=== PATIENT | male | born 1995 | race Two or more races ===

== ENCOUNTER 2023-09-04 20:01 | Emergency (ER) | payer OTHER, SELFPAY ==
--- NOTE | ~2023-09-04 | CT_ITS ---
EXAMINATION: CT brain wo con DATE: 09/04/2023 21:17 INDICATION: Head injury TECHNIQUE: Computed tomography (CT) of the head was performed without intravenous contrast. Sagittal and coronal reconstructions were performed. The mA was adjusted according to patient size. Iterative reconstruction technique was employed. The dose-length product was 681.00 mGy-cm. COMPARISON: None FINDINGS: No fracture. No acute intracranial hemorrhage, acute infarction or abnormal extra axial fluid collect ion. Ventricles are normal and symmetric. No mass/mass effect. Small mucous retention cyst in the pos terior most right ethmoid air cell. The orbits and mastoid air cells are normal. IMPRESSION: 1. Normal brain. No fracture or acute intracranial process. Reviewed, dictated and finalized at location A. O PRODUCER
[2023-09-04 20:07] VITALS: BP 126/77; PULSE 72; RESP 20; TEMP 37.1; O2SAT 99
--- NOTE | 2023-09-04 21:08 | ED.WOUNDLAC ---
HPI - Wound/Laceration General Chief Complaint: Wound/Laceration Stated Complaint: laceration Time Seen by Provider: 09/04/23 20:40 Source: patient and RN notes reviewed Mode of arrival: ambulatory Limitations: language barrier (patient speaks citizen [place]. use video set up mold technician) History of Present Illness HPI narrative: This is a 27 year old male who presents for evaluation of head injury. PAtient states he was standing up but he did not see there was a metal object. He hit his head on this metal object and he suffered laceration. He denies LOC but he reports severe headache. He denies dizziness, nausea, vomiting . He is unsure of if he has received a tetanus shot in the past. He reports headache 03/30. Related Data Allergies Allergy/AdvReac Type Severity Reaction Status Date / Time No Known Allergies Allergy Verified 09/04/23 20:14 Review of Systems Review of Systems: All systems reviewed & are unremarkable except as noted in HPI and below PMFSH Past Medical History Medical History (Updated 09/04/23 @ 22:19 by Marlene Schwartz MD) Patient denies medical problems Surgical History Surgical History (Updated 09/04/23 @ 21:10 by Marlene Schwartz MD) No pertinent past surgical history Social History Social History (Updated 09/04/23 @ 21:10 by Marlene Schwartz MD) Smoking status: Never smoker Exam Const: General: no acute distress and alert Nutritional Appearance: well nourished Orientation/consciousness: patient oriented x3 HENMT: Head: laceration (left frontal scalp laceration, circular flap, 3 cm) Ears: external ears normal Face and sinus: normal facial exam, sinuses nontender and sinus tenderness Mouth: Yes Normal oral and palatal mucosa present, Yes lip normal and Yes moist mucous membranes Throat: posterior oropharynx normal and uvula midline Eyes: EOM: EOMs intact bilaterally Neck: Neck: normal visual inspection Resp: Effort & Inspection: normal respiratory effort Skin: Other: scalp laceration Neuro: General: patient oriented x3, moves all extremities and CN's II-XI intact bilaterally Psych: Mental Status: mental status grossly normal Affect: normal affect Attitude: cooperative Course Reevaluation(s) Reevaluation #1: I Discussed wound care with patient. Date: 09/04/23 Time: 22:15 Vital Signs Vital signs: Vital Signs Temperature 98.8 F 09/04/23 20:07 Pulse Rate 72 09/04/23 20:07 Respiratory Rate 20 09/04/23 20:07 Blood Pressure 126/77 09/04/23 20:07 Pulse Oximetry 99 09/04/23 20:07 Oxygen Delivery Room Air 09/04/23 20:07 Temperature 98.8 F 09/04/23 20:07 Pulse Rate 72 09/04/23 20:07 Respiratory Rate 20 09/04/23 20:07 Blood Pressure 126/77 09/04/23 20:07 Pulse Oximetry 99 09/04/23 20:07 Oxygen Delivery Room Air 09/04/23 20:07 Procedures Laceration Laceration 1: Date: 09/04/23 Time: 22:15 Site: scalp Size (cm): 3 Description: flap Depth: simple, single layer Local Anesthetic: lidocaine 1% and with epi Amount of anesthesia used (mL): 3 Pre-repair: wound explored and irrigated ====== Skin Level ====== Skin layer closed with: michael Number of sutures: 11 ====== Subcutaneous Layer ====== ====== Muscle Layer ====== ====== Tendon Layer ====== MDM - Wound/Laceration MDM Narrative Medical decision making narrative: Patient given tetanus immunization. CT brain done given severe headache and mechanism. This was negative. laceration was repaired Imaging Data Radiologist's impression: ITS Impressions Head CT 09/04/23 21:32 IMPRESSION: 1. Normal brain. No fracture or acute intracranial process. Discharge Plan Discharge Clinical Impression: Laceration of scalp Qualifiers: Encounter type: initial encounter Qualified Code(s): S01.01XA - Laceration without foreign body of scalp, initial encounter H
[2023-09-04] MEDS: TETANUS,DIPHTHERIA,AC PERTUSSIS ADULT (0.5 ML) BOOSTRIX IM (21:21)
== END 2023-09-04 22:29 | disposition home or self-care (01) ==
PROVIDERS: Emergency Provider General Practice
DX: S01.01XA Laceration without foreign body of scalp, initial encounter (principal); Z23 Encounter for immunization; W26.8XXA Contact with other sharp object(s), not elsewhere classified, initial encounter
CPT/HCPCS: 12002; 70450; 90471; 90715; 99284